=== PATIENT | male | born 1965 | race Caucasian/White ===

== ENCOUNTER 2017-05-22 10:05 | Emergency (ER) | payer OTHER ==
[~2017-05-22] VITALS: Ht 177.8 cm; Wt 84.2 kg
[2017-05-22 10:09] VITALS: BP 147/85
[2017-05-22] MEDS ORDERED: NAPROXEN 500 MG TABLET PO ONE (11:00)
== END 2017-05-22 11:32 | disposition home or self-care (01) ==
LOC: ED 11:30
DX: S83.91XA Sprain of unspecified site of right knee, initial encounter (principal); K21.9 Gastro-esophageal reflux disease without esophagitis; I10 Essential (primary) hypertension; M25.461 Effusion, right knee; X58.XXXA Exposure to other specified factors, initial encounter; Y93.01 Activity, walking, marching and hiking; Y99.8 Other external cause status; Y92.009 Unspecified place in unspecified non-institutional (private) residence as the place of occurrence of the external cause
CPT/HCPCS: 29505

== ENCOUNTER → 2017-09-19 | Outpatient (CLI) | payer OTHER | END | disposition home or self-care (01) | LOC: CFH 09:54 | PROVIDERS: ATTEND Family Medicine | DX: I82.401 Acute embolism and thrombosis of unspecified deep veins of right lower extremity (principal) ==

== ENCOUNTER → 2021-01-07 | Outpatient (CLI) | payer OTHER ==
[~2021-01-07] MED LIST: ASPI81TA45 PO; LOSA50TA14 PO; OMEP40CA42 PO
[2021-01-07 12:03] LABS: BASOPHILS % (AUTO) 1 % (0-1); EOSINOPHILS % (AUTO) 2 % (1-7); HCT (SEDRATE) 42.9 % (39.2-51.8); LYMPHOCYTES % (AUTO) 18 % (22-44); MEAN CORPUSCULAR HEMOGLOBIN 29.5 pg (27.5-34.5); MEAN CORPUSCULAR HGB CONC 34.1 g/dL (33.2-36.2); MONOCYTES % (AUTO) 12 % (2-9); NEUTROPHILS % (AUTO) 67 % (42-75); PLATELET COUNT 174 x10^3/uL (130-400); RED BLOOD COUNT 4.98 x10^6/uL (4.38-5.82); RED CELL DISTRIBUTION WIDTH 13.3 % (9.4-14.8)
[2021-01-07 12:04] LABS: MD NO
[2021-01-07 12:14] LABS: INTERNATIONAL NORMALIZED RATIO 1.02 (0.93-1.1); PROTHROMBIN TIME 10.9 Seconds (9.6-11.5)
[2021-01-07 12:19] LABS: ALBUMIN 3.6 g/dL (3.4-5.0); ANION GAP 5 mmol/L (5-15); CALCIUM 8.7 mg/dL (8.5-10.1); CHLORIDE 109 mmol/L (98-107)
[2021-01-07 12:24] LABS: MICROSCOPIC NOT IND
[2021-01-07 12:26] LABS: ALANINE AMINOTRANSFERASE 42 U/L (12-78); ALKALINE PHOSPHATASE 52 U/L (45-117); BILIRUBIN,TOTAL 0.6 mg/dL (0.2-1.0); CREATININE 0.94 mg/dL (0.7-1.3); TOTAL PROTEIN 6.9 g/dL (6.4-8.2)
== END | disposition home or self-care (01) ==
LOC: STAR 10:43
PROVIDERS: ATTEND Orthopaedic Surgery Orthopaedic Surgery of the Spine
DX: Z01.812 Encounter for preprocedural laboratory examination (principal); Z20.822 Contact with and (suspected) exposure to COVID-19; M54.16 Radiculopathy, lumbar region; M43.16 Spondylolisthesis, lumbar region
CPT/HCPCS: 71046; 80053; 80074; 81003; 85025; 85610; 85651; 85730; 87635; 87806; 93005; G0475

== ENCOUNTER 2021-01-13 05:44 | Inpatient (IN) | payer OTHER ==
[~2021-01-13] VITALS: Ht 177.8 cm; Wt 86.0 kg
[2021-01-13] MEDS ORDERED: CHLORHEXIDINE 15 ML UDC MM STA (06:03)
[2021-01-13] MEDS ORDERED: LACTATED RINGERS 1,000 ML IV SCH (06:30)
[2021-01-13] MEDS ORDERED: THROMBIN 5,000 UNIT VIAL TP ONE (07:09)
[2021-01-13] MEDS ORDERED: FENTANYL PF 100 MCG/2ML ONE (07:09)
[2021-01-13] MEDS ORDERED: morphine SULFATE/PF 0.5 MG/ML, 10ML ONE (07:09)
[2021-01-13] MEDS ORDERED: BUPIVACAINE/PF 0.5% ONE (07:09)
[2021-01-13] MEDS ORDERED: LIDOCAINE/PF 1%, 30ML ONE (07:10)
[2021-01-13] MEDS ORDERED: VANCOMYCIN 1,000 MG ONE (07:10)
[2021-01-13] MEDS ORDERED: EPINEPHRINE 1 MG/ML, 1ML ONE (07:10)
[2021-01-13] MEDS ORDERED: BACITRACIN 50,000 UNIT ONE (07:10)
[2021-01-13] MEDS ORDERED: MIDAZOLAM 1 MG/ML, 2ML ONE (07:35)
[2021-01-13] MEDS ORDERED: FENTANYL PF 250 MCG/5ML ONE (07:35)
[2021-01-13] MEDS ORDERED: PROPOFOL 50 ML ONE ×2 (08:00→09:14)
[2021-01-13] MEDS ORDERED: LIDOCAINE 1%-EPI 1:100K, 30ML INFIL ONE (08:30)
[2021-01-13] MEDS ORDERED: BACITRACIN 50,000 UNIT IRRIG ONE (08:30)
[2021-01-13] MEDS ORDERED: BUPIVACAINE/PF-EPI 0.5% 1:200K INFIL ONE (08:30)
[2021-01-13] MEDS ORDERED: GENTAMICIN 80 MG/2 ML ONE ×2 (08:46)
[2021-01-13] MEDS ORDERED: DEXAMETHASONE 4 MG/ML, 1ML ONE (08:47)
[2021-01-13] MEDS ORDERED: GLYCOPYRROLATE 0.2MG/1ML, 5ML ONE (08:47)
[2021-01-13] MEDS ORDERED: ROCURONIUM 10MG/ML,5ML ONE (08:47)
[2021-01-13] MEDS ORDERED: NEOSTIGMINE 1 MG/ML, 10ML ONE (08:47)
[2021-01-13] MEDS ORDERED: PROPOFOL 10 MG/ML, 20ML ONE (08:47)
[2021-01-13] MEDS ORDERED: ONDANSETRON 2MG/ML, 2ML ONE (08:47)
[2021-01-13] MEDS ORDERED: CEFAZOLIN 1,000 MG ONE (08:47)
[2021-01-13] MEDS ORDERED: LORazepam 2 MG/ML, 1ML IVPush PRN (09:00)
[2021-01-13] MEDS ORDERED: ALBUTEROL SULFATE 2.5 MG/3 ML NPPB PRN (09:00)
[2021-01-13] MEDS ORDERED: hydrALAzine 20 MG/ML, 1ML IV PRN (09:00)
[2021-01-13] MEDS ORDERED: ACETAMINOPHEN 325 MG TABLET PO PRN (09:00)
[2021-01-13] MEDS ORDERED: LABETALOL 5MG/ML, 20ML IV PRN ×2 (09:00→12:00)
[2021-01-13] MEDS ORDERED: HYDROmorphone 1 MG/ML, 1ML INJ IVPush PRN (09:00)
[2021-01-13] MEDS ORDERED: FENTANYL PF 100 MCG/2ML EPIDPUSH ONE (09:00)
[2021-01-13] MEDS ORDERED: OXYcodone 5 MG/5 ML ORAL.SOL UDC PO PRN (09:00)
[2021-01-13] MEDS ORDERED: MEPERIDINE/PF 25MG/0.5ML IVPush PRN (09:00)
[2021-01-13] MEDS ORDERED: morphine SULFATE/PF 0.5 MG/ML, 10ML EPIDPUSH ONE (09:00)
[2021-01-13] MEDS ORDERED: PROMETHAZINE 25 MG/ML, 1ML IVPush PRN (09:00)
[2021-01-13] MEDS ORDERED: FENTANYL PF 100 MCG/2ML IV PRN (09:00)
[2021-01-13] MEDS ORDERED: DIAZEPAM 5 MG TABLET PO PRN (12:00)
[2021-01-13] MEDS ORDERED: HYDROcodone/APAP 5/325 TABLET PO PRN (12:00)
[2021-01-13] MEDS ORDERED: DIAZEPAM 5 MG/ML, 2ML IV PRN (12:00)
[2021-01-13] MEDS ORDERED: ONDANSETRON 2MG/ML, 2ML IV PRN (12:00)
[2021-01-13 13:45] VITALS: BP 100/64
[2021-01-13] MEDS: D5%-0.9% NACL+KCL 20MEQ 1,000 ML IV SCH ×2 (14:02→23:38)
[2021-01-13] MEDS: CEFAZOLIN PMX 1GM/50ML 50 ML IVPB SCH ×2 (16:07→23:38)
[2021-01-13] MEDS: GABAPENTIN 300 MG CAPSULE PO SCH ×2 (16:07→21:26)
[2021-01-13 20:00] VITALS: BP 126/82
[2021-01-13 23:44] VITALS: BP 114/84
[2021-01-14 03:52] VITALS: BP 111/79
[2021-01-14] MEDS: OXYcodone IR 5MG TABLET PO PRN ×4 (05:38→14:45)
[2021-01-14 07:16] VITALS: BP 131/89
[2021-01-14] MEDS: GABAPENTIN 300 MG CAPSULE PO SCH ×2 (08:00→16:39)
[2021-01-14] MEDS: D5%-0.9% NACL+KCL 20MEQ 1,000 ML IV SCH ×2 (08:02→16:00)
[2021-01-14] MEDS ORDERED: SENNA/DOCUSATE TABLET PO SCH (09:00)
[2021-01-14 12:20] VITALS: BP 98/75
[2021-01-14] MEDS ORDERED: GABA600T7 PO (17:01)
== END 2021-01-14 17:30 | disposition home or self-care (01) | DRG 517 ==
LOC: ORIP 05:44 → 4NE 11:41
PROVIDERS: ADMIT Orthopaedic Surgery Orthopaedic Surgery of the Spine; ATTEND Orthopaedic Surgery Orthopaedic Surgery of the Spine
PROC: 01NR0ZZ Release Sacral Nerve, Open Approach (ICD-10-PCS; 2021-01-13)
PROC: 4A11X4G Monitoring of Peripheral Nervous Electrical Activity, Intraoperative, External Approach (ICD-10-PCS; 2021-01-13)
PROC: 01NB0ZZ Release Lumbar Nerve, Open Approach (ICD-10-PCS; principal; 2021-01-13 07:30)
DX: M48.061 Spinal stenosis, lumbar region without neurogenic claudication (principal); M43.16 Spondylolisthesis, lumbar region; M53.2X6 Spinal instabilities, lumbar region; M54.16 Radiculopathy, lumbar region
CPT/HCPCS: 72100; J3490; S0020; 95938; 95941; C1776; G0378; J0171; J0690; J1100; J2250; J2270; J2274; J2405; J2704; J2710; J3010; J3370; C1751; J1580; J3480